=== PATIENT | male | born 1970 | race Caucasian/White ===

== ENCOUNTER 2018-05-26 18:59 | Emergency (ER) | payer BC ==
[2018-05-26 19:26] VITALS: BP 136/80
[2018-05-26] MEDS ORDERED: PREDNISONE 20 MG TABLET PO ONE (20:33)
[2018-05-26] MEDS ORDERED: DIAZEPAM INJ 10 MG/2 ML DISP.SYRIN IM ONE (20:34)
--- NOTE | 2018-05-26 20:37 | ER Document Report ---
HPI - HPI Patient complains to provider of: lower back pain Time Seen by Provider: 05/26/18 20:25 Pain Level: 5 Context: Patient is a 48-year-old male with chief complaint of back pain since Saturday, he states that he was standing up when he felt pain in his back, he states now he is going to have muscle spasms in his lower back with occasional radiation down his legs. He denies numbness, incontinence, fever, impact injury, or history of the same. He states he has been taking Flexeril for the past 2 days but this does not seem to help. He denies any daily medications, denies history of IV drugs, denies fever, denies incontinence, denies focal numbness or weakness. - MUSCULOSKELETAL Musculoskeletal: DENIES: Extremity pain Past Medical History - General Information source: Patient - Social History Smoking Status: Current Every Day Smoker Frequency of alcohol use: Rare Drug Abuse: None Lives with: Family Family History: Reviewed & Not Pertinent Patient has suicidal ideation: No Patient has homicidal ideation: No - Medical History Medical History: Negative Renal/ Medical History: Denies: Hx Peritoneal Dialysis Past Surgical History: Reports: Hx Cholecystectomy - Immunizations Immunizations up to date: Yes Hx Diphtheria, Pertussis, Tetanus Vaccination: Yes Vertical Provider Document - CONSTITUTIONAL General Appearance: WD/WN, Mild Distress - Patient sitting up straight, when he tries to move occasionally he will have obvious back spasm - INFECTION CONTROL TRAVEL OUTSIDE OF THE [place] IN LAST 30 DAYS: No - HEENT HEENT: Atraumatic, Normal ENT Exam, Normocephalic - NECK Neck: Normal Inspection - RESPIRATORY Respiratory: Breath Sounds Normal, No Respiratory Distress - CARDIOVASCULAR Cardiovascular: Regular Rate, Regular Rhythm - GI/ABDOMEN Gastrointestinal: Abdomen Soft, Abdomen Non-Tender - BACK Back: negative: Normal Inspection - Tenderness with punched a muscle fibers especially along the bilateral paralumbar spine. No midline tenderness, no saddle anesthesia, no signs of trauma. Normal upper and lower extremity range of motion, normal strength, normal distal neurovascular exam. Course - Re-evaluation Re-evalutation: Patient has obvious intermittent back spasms on evaluation, he is sitting very straight, he has palpable painful musculature along the paralumbar spine, no midline tenderness, no saddle anesthesia, no numbness, no incontinence. No fever. Denies any history of IV drug abuse. He did have an injury although he did not have an impact injury. I suspect herniated disc and muscle spasms of the cause. Low suspicion of spinal cord compression, epidural abscess. Discussed with patient different options, he is already on Flexeril, because of his obvious painful symptoms we will place him on short course of diazepam, also short course of prednisone after this was discussed including pros and cons. Discussed follow-up and return precautions. Patient and significant other state understanding and agreement. - Vital Signs Vital signs: Temp Pulse Resp BP Pulse Ox 98.6 F 100 18 136/80 H 97 05/26/18 19:25 05/26/18 19:25 05/26/18 19:25 05/26/18 19:25 05/26/18 19:25 Discharge - Discharge Clinical Impression: Muscle spasm Lower back pain Qualifiers: Chronicity: acute Back pain laterality: bilateral Sciatica presence: with sciatica Sciatica laterality: bilateral sciatica Qualified Code(s): M54.42 - Lumbago with sciatica, left side Condition: Stable Disposition: HOME, SELF-CARE Additional Instructions: Your injury is most suggestive of herniated disc and muscle spasms. Rest, avoid lifting and twisting, apply heat to your lower back, take medications as prescribed. Follow-up with primary care. Return if you worsen including inability to urinate, accidentally is moving her bowels, fever 100.4 or greater, developing numbness, or any other concerning or worsening symptoms. Prescriptions: Diazepam [Valium 5 mg Tablet] 1 - 2 tab PO TID PRN #12 tablet PRN Reason: Prednisone [Deltasone 10 mg Tablet] 10 mg PO ASDIR PRN #21 tablet PRN Reason: Forms: Return to School Referrals: ANTONIO STOLL DO [Primary Care Provider] - Follow up as needed
== END 2018-05-26 20:55 | disposition home or self-care (01) ==
LOC: ER 18:59
DX: M62.830 Muscle spasm of back (principal); M54.42 Lumbago with sciatica, left side; F17.200 Nicotine dependence, unspecified, uncomplicated
CPT/HCPCS: 99283; 96372; J3360; J7512